=== PATIENT | female | born 1955 | race Caucasian/White ===

== ENCOUNTER 2017-01-19 13:13 | Emergency (ER) | payer MEDICARE, OTHER ==
[~2017-01-19] VITALS: Ht 175.3 cm; Wt 81.1 kg
[2017-01-19 13:23] VITALS: Ht 175.3 cm; Wt 81.1 kg
--- NOTE | 2017-01-19 15:12 | ERD ---
ER Documentation Chief Complaint Chief Complaint Complains of left eye pain and swelling after a fall last night HPI 61-year-old female presenting 20 hours status post mechanical fall with impact to segments. Tripped over a leon. History of bilateral retinal detachment. Vision 20/600. Pain 6/10 worse with pressure. Went to PCP who sent her to the emergency department. History of thyroidectomy and palpitations. Takes Synthroid and metoprolol. Denies syncope, headache, loss of consciousness, vomiting, altered mental status, injury to other areas of the body. No noticeable change in vision. Has not taken any medications to relieve the symptoms. Patient has no other complaints describes no other associated manifestations. ROS All systems reviewed and are negative except as per history of present illness. Allergies Allergies: Coded Allergies: No Known Allergy (Unverified , 01/19/17) PMhx/Soc Medical and Surgical Hx: pt denies Medical Hx, pt denies Surgical Hx Hx Alcohol Use: No Hx Substance Use: No Hx Tobacco Use: No Smoking Status: Never smoker Physical Exam Vitals Vital Signs Date Time Temp Pulse Resp B/P Pulse Ox O2 Delivery O2 Flow Rate FiO2 01/19/17 13:23 98.9 74 20 129/71 98 Physical Exam Const: 61-year-old female in NAD. Acting appropriately. Head: Atraumatic Eyes: Erythematous hematoma under the right eye. Normal Conjunctiva. Right eye nystagmus when looking to the right side. Right eye not tracking up with extraocular movements. Palpation deferred. ENT: No hemotympanum. No battles sign. Normal External Ears, Nose and Mouth. Neck: Full range of motion..~ No meningismus. Resp: Clear to auscultation bilaterally Cardio: Regular rate and rhythm, no murmurs Abd: Soft, non tender, non distended. Normal bowel sounds Skin: No petechiae or rashes Back: No midline or flank tenderness Ext: No cyanosis, or edema Neur: Awake and alert Psych: Normal Mood and Affect Results 24 hrs Current Medications Medications (Trade) Dose Ordered Sig/Bal Route PRN Reason Start Time Stop Time Status Last Admin Dose Admin Acetaminophen (Tylenol Tab) 650 mg ONCE ONCE PO 01/19/17 15:30 01/19/17 15:31 DC 01/19/17 15:28 Procedures/MDM 61-year-old female with a chief complaint of eye trauma 24 hour status post mechanical fall with impact to cement. Denies loss of consciousness, vomiting, current headache. Affected eye was not tracking up as far as the left eye. History of bilateral retinal detachment. Vision 600/20. Case was presented to my attending. CT of the orbit, brain, cervical spine was obtained, read by the radiologist, and given the following impressions: Brain - 1. No acute intracranial hemorrhage, transcortical infarction or mass effect. 2. Mild intracranial atherosclerosis and chronic small vessel ischemic changes. 3. 4 x 2 cm probable right middle cranial fossa arachnoid cyst with mild mass effect on right frontal lobe. 3. Mild generalized cerebral volume loss. C-spine - 1. Straightening of normal cervical lordosis. 2 mm anterolisthesis at C4-C5. 2. No acute cervical spine fracture. 3. Multilevel mild degenerative changes of the cervical spine, most prominent at C4-C5 and C5-C6. 4. Multilevel foraminal stenosis as outlined in details in findings. Orbits - 1. No acute orbital abnormality. 2. Bilateral scleral buckling which likely represent prior treatment for retinal detachment. I briefly reviewed the findings with my attending who has agreed that discharge with follow-up with PCP as appropriate at this time. I have spoken to the patient regarding their CT results. Most likely diagnosis is periorbital trauma. I have no suspicion for entrapment, rupture, TBI, or acute bony pathology. I have spoke with the patient regarding their condition and future management. They have verbally responded that they understand their status and treatment plan. The patients vitals are stable, and their current condition is appropriate for discharge. The patient will be given discharge instructions with return precautions. Departure Diagnosis: Primary Impression: Eye injury Encounter type: initial encounter Laterality: right Qualified Code: S05.91XA - Right eye injury, initial encounter Condition: Stable Additional Instructions: Follow up with your PCP within the next 1-3 days for a more thorough evaluation and a possible referral to a specialist. Return the the emergency department immediately if symptoms worsen or change. If you have any questions regarding medications, ask your pharmacist or us before you leave. If any adverse reactions occur while taking your medications, discontinue the treatment and return to the emergency department immediately. Take your medications as directed, and complete the entire course of treatment. JOSE GUZMAN PA-C Jan 19, 2017 15:12
--- NOTE | 2017-01-19 15:27 | RADRPT ---
PROCEDURE: CT Brain without contrast. CLINICAL INDICATION: Trauma, pain. TECHNIQUE: A CT of the brain without contrast was performed utilizing axial sections from the skul l base through the vertex. One or more the following does reduction techniques were utilized: Automa uri exposure control, adjustment of the mA/ or kV according to patient's size, or use of iterative r econstruction technique. Total exam CTDIvol is 42.81 MGy and DLP is 630.2 mGy-cm. DICOM images are available. COMPARISON: None available. FINDINGS: The ventricles and sulci are mildly prominent indicative of volume loss. There is no intracranial h emorrhage, mass effect or midline shift. No abnormal intra-axial or extra-axial fluid collections a re seen. The warren/white matter differentiation is well preserved. There is prominent extra-axial CSF space overlying anterior inferior right frontal lobe measuring ap proximately 4 x 2 cm which likely represent an arachnoid cyst with mild mass effect on right frontal lobe. There are mild foci of hypoattenuation in the periventricular, deep, and subcortical white matter, w hich are nonspecific in etiology but likely reflect chronic small vessel ischemic changes. There are mild intracranial vascular calcifications consistent with atherosclerosis. The visualized paranasa l sinuses are essentially clear. IMPRESSION: 1. No acute intracranial hemorrhage, transcortical infarction or mass effect. 2. Mild intracranial atherosclerosis and chronic small vessel ischemic changes. 3. 4 x 2 cm probable right middle cranial fossa arachnoid cyst with mild mass effect on right front al lobe. 3. Mild generalized cerebral volume loss. RPTAT: HH .Dominic Mullen MD, MD Date Time Electronically viewed and signed by .Dominic Mullen MD, MD on 01/19/2017 15:27 .N/
[2017-01-19] MEDS ORDERED: ACETAMINOPHEN 325 MG TAB PO ONE (15:30)
--- NOTE | 2017-01-19 15:30 | RADRPT ---
PROCEDURE: CT orbits CLINICAL INDICATION: Trauma, pain. TECHNIQUE: Volumetric axially acquired images of the orbits obtained following the administration of intravenous contrast were reconstructed in the axial, coronal, and sagittal planes. One or more the following does reduction techniques were utilized: Automated exposure control, adjus tment of the mA/ or kV according to patient's size, or use of iterative reconstruction technique. The exam CTDI = 58 mGy and the DLP = 571 mGy-cm. DICOM images are available. COMPARISON: No prior studies are available for comparison. FINDINGS: Bilateral scleral buckling are noted in orbits which likely represent prior treatment for retinal de tachment. There is thinning of bilateral lens indicative of prior lens replacement. The globes are otherwise i ntact. The extra-ocular muscles and optic nerves are symmetric and normal in size. The visualized paranasal sinuses demonstrate 2 cm probable mucous retention cyst in the left maxilla ry sinus. Bilateral emanuel bullosa is noted, anatomical variation. IMPRESSION: 1. No acute orbital abnormality. 2. Bilateral scleral buckling which likely represent prior treatment for retinal detachment. RPTAT: UU .Domiinc Mullen MD, MD Date Time Electronically viewed and signed by .Dominic Mullen MD, MD on 01/19/2017 15:30 .N/
--- NOTE | 2017-01-19 15:53 | RADRPT ---
PROCEDURE: CT cervical spine without contrast CLINICAL INDICATION: Trauma. Neck pain. TECHNIQUE: CT scan of the cervical spine [facility] No [facility] was administered. Coronal and sagittal reformatted images were obtained from th e axial source images. Images were reviewed on a high-resolution PACS workstation. One or more the f ollowing does reduction techniques were utilized: Automated exposure control, adjustment of the mA/ or kV according to patient's size, or use of iterative reconstruction technique. Exam CTDI = 22.04 m Gy and the DLP = 391.02 mGy-cm. DICOM images are available. COMPARISON: None available. FINDINGS: There is straightening of the alignment of the cervical spine with loss of the normal cervical lordo sis. There is 2 mm anterolisthesis at C4-C5. Alignment remains intact. No acute fracture or disloca tion is seen. The vertebral body heights are preserved. No mass, hematoma, or other soft tissue abn ormality is seen. There are multilevel mild degenerative changes of the cervical spine, manifested by osteophytosis an d disc height narrowing, most prominent at C4-C5 and C5-C6. Uncovertebral osteophytes and facet arth ropathy result in multilevel foraminal stenosis: at C2-C3 mild on the right, at C3-C4 moderate on th e left, at C4-C5 moderate on the right, at C5-C6 moderate on the right. No significant bony cervical spinal canal stenosis is noted. IMPRESSION: 1. Straightening of normal cervical lordosis. 2 mm anterolisthesis at C4-C5. 2. No acute cervical spine fracture. 3. Multilevel mild degenerative changes of the cervical spine, most prominent at C4-C5 and C5-C6. 4. Multilevel foraminal stenosis as outlined in details in findings. RPTAT: UU .Dominic Mullen MD, MD Date Time Electronically viewed and signed by .Dominic Mullen MD, MD on 01/19/2017 15:52 .N/
[2017-01-20] MEDS ORDERED: SULF1TAB31 PO (13:04)
[2017-01-20] MEDS ORDERED: IBUP-1542 PO (13:05)
[2017-01-20] MEDS ORDERED: MUPI22OI2 TOP (13:06)
== END 2017-01-19 16:21 | disposition home or self-care (01) ==
LOC: FTE 13:13
DX: S00.11XA Contusion of right eyelid and periocular area, initial encounter (principal); W01.0XXA Fall on same level from slipping, tripping and stumbling without subsequent striking against object, initial encounter; Y92.9 Unspecified place or not applicable
CPT/HCPCS: 70450; 70480; 72125

== ENCOUNTER 2017-01-20 10:19 | Emergency (ER) | payer MEDICARE, OTHER ==
[~2017-01-20] VITALS: Ht 162.6 cm; Wt 81.8 kg
[2017-01-20 10:22] VITALS: Ht 162.6 cm; Wt 81.8 kg
[2017-01-20] MEDS ORDERED: TRIMETHOPRIM/SULFAMETHOX (DS) TAB PO ONE (13:00)
[2017-01-20] MEDS ORDERED: CEPHALEXIN 500 MG CAP PO ONE (13:00)
[2017-01-20] MEDS ORDERED: IBUPROFEN 600 MG TAB PO ONE (13:00)
[2017-01-20] MEDS ORDERED: SULF1TAB31 PO (13:04)
[2017-01-20] MEDS ORDERED: IBUP-1542 PO (13:05)
[2017-01-20] MEDS ORDERED: MUPI22OI2 TOP (13:06)
--- NOTE | 2017-01-20 13:09 | ERD ---
ER Documentation Chief Complaint Chief Complaint abcess on rt middle finger HPI This 61-year-old female presents with some pain and swelling on her right middle finger. She believes it started with a rash that she was scratching a lot. She gets frequent rashes on her fingers. She denies fevers vomiting, shortness of breath or chest pain. ROS All systems reviewed and are negative except as per history of present illness. Medications Home Meds Active Scripts Mupirocin* (Bactroban*) 2% -22 Gram Oint...g., 1 APPLIC TOP BID for 7 Days, EA Prov:NICKI BARBA MD 01/20/17 Ibuprofen* (Motrin*) 600 Mg Tab, 600 MG PO Q6, #15 TAB Prov:NICKI BARBA MD 01/20/17 Sulfamethoxazole/Trimethoprim* (Bactrim Ds* Tablet) 1 Each Tablet, 1 TAB PO BID for 7 Days, #14 TAB Prov:NICKI BARBA MD 01/20/17 Allergies Allergies: Coded Allergies: No Known Allergy (Unverified , 01/19/17) PMhx/Soc Hx Alcohol Use: No Hx Substance Use: No Hx Tobacco Use: No Physical Exam Vitals Vital Signs Date Time Temp Pulse Resp B/P Pulse Ox O2 Delivery O2 Flow Rate FiO2 01/20/17 10:22 98.3 74 16 107/55 98 Physical Exam Const: [] Alert, [id number]. Head: Atraumatic Eyes: Normal Conjunctiva ENT: Normal External Ears, Nose and Mouth. Neck: Full range of motion..~ No meningismus. Resp: Clear to auscultation bilaterally Cardio: Regular rate and rhythm, no murmurs Abd: Soft, non tender, non distended. Normal bowel sounds Skin: No petechiae or rashes. On the lateral aspect of the right middle finger there is an approximate 1 cm of vesicle with purulent material. There is some surrounding redness. There is no restricted range of motion or weakness. Back: No midline or flank tenderness Ext: No cyanosis, or edema Neur: Awake and alert Psych: Normal Mood and Affect Results 24 hrs Current Medications Medications (Trade) Dose Ordered Sig/Bal Route PRN Reason Start Time Stop Time Status Last Admin Dose Admin Trimethoprim/ Sulfamethoxazole (Bactrim (Ds)) 1 tab ONCE ONCE PO 01/20/17 13:00 01/20/17 13:01 DC 01/20/17 12:43 Cephalexin (Keflex) 500 mg ONCE ONCE PO 01/20/17 13:00 01/20/17 13:01 DC 01/20/17 12:43 Ibuprofen (Motrin) 600 mg ONCE ONCE PO 01/20/17 13:00 01/20/17 13:01 DC 01/20/17 12:43 Procedures/MDM Patient resents with an abscess in the right middle finger. It appears to have started from irritation from eczema. There is no signs or symptoms of tenosynovitis, osteomyelitis, fracture, dislocation, or deficits. Doubt foreign body given history but no foreign body visualized on procedure Procedure note-the right middle finger was prepped with Betadine. The lesion was unroofed with an 18-gauge needle and the wound was dressed. Patient tolerated procedure well and the wound was dressed. Patient was given Bactrim, Keflex and ibuprofen here We will treat with Bactrim at home, instructions for wound care and was transferred to day wound check for worsening redness, fevers, new or worsening symptoms. The patient was stable with no new complaints during the ER course. Clinically, there is no current evidence to suggest meningitis, sepsis, acute abdomen, pneumonia, acute coronary syndrome, pulmonary embolism, or any other emergent condition appearing to require further evaluation or hospitalization. The patient should certainly return for any new or worsening symptoms per the aftercare instructions. They should otherwise follow-up with her primary care doctor for reevaluation this week. Departure Diagnosis: Primary Impression: Abscess Condition: Stable Patient Instructions: Abscess, Incision And Drainage Additional Instructions: Recheck in 2 days for worsening redness, fevers, new or worsening symptoms. NICKI BARBA MD Jan 20, 2017 13:09
== END 2017-01-20 13:21 | disposition home or self-care (01) ==
LOC: FTE 10:19
DX: L02.511 Cutaneous abscess of right hand (principal)